=== PATIENT | female | born 1990 | race Caucasian/White ===

== ENCOUNTER 2017-01-16 19:17 | Emergency (ER) ==
[2017-01-16 19:23] VITALS: BP 119/74; TEMP 98.6; BMI 25.9
[2017-01-16] MEDS ORDERED: LIDOCAINE 1 % AMP 5 ML (SUTURES) ID STA (19:54)
[2017-01-16] MEDS ORDERED: BOOSTRIX IM ONE (19:55)
--- NOTE | 2017-01-16 19:58 | ED.PDOC ---
General ED Provider: Dr. THOM HOBBS Chief Complaint: Finger Pain/Injury Stated Complaint: fish hook stuck in the middle finger Time Seen by Physician: 19:56 Mode of Arrival: Walk-In Information Source: Patient Nursing and Triage Documentation Reviewed and Agree: Yes Skin Complaint Exam - Skin/Soft Tissue Complaint/Exam Symptoms Are: Still present Timing: Constant Initial Severity: Mild Current Severity: Mild Character: Reports: Redness, Swelling Aggravating: Reports: Touch Alleviating: Reports: None Associated Signs and Symptoms: Reports: Tenderness. Denies: Fever, Chills, Itching, Drainage, Bruising, Red streaks, Joint swelling Related History: Reports: Recent trauma, Foreign body (fish hook) Related Surgical History: Reports: None Recent Exposure to Others w/Similar Symptoms: No Skin Findings: Present: Erythema, Induration Differential Diagnoses: Foreign Body (fish hook) Review of Systems - Review Of Systems Constitutional: Reports: No symptoms Eyes: Reports: No symptoms Ears, Nose, Mouth, Throat: Reports: No symptoms Respiratory: Reports: No symptoms Cardiac: Reports: No symptoms GI: Reports: No symptoms : Reports: No symptoms Musculoskeletal: Reports: No symptoms Skin: Reports: No symptoms Neurological: Reports: No symptoms Endocrine: Reports: No symptoms Hematologic/Lymphatic: Reports: No symptoms All Other Systems: Reviewed and Negative Past Medical History - Past Medical History Previously Healthy: Yes Endocrine: Reports: None Cardiovascular: Reports: None Respiratory: Reports: None Hematological: Reports: None Gastrointestinal: Reports: None Genitourinary: Reports: None Neuro/Psych: Reports: None Musculoskeletal: Reports: None Cancer: Reports: None Last Menstrual Period: 1 week ago - Surgical History General Surgical History: Reports: None - Family History Family History: Reports: None - Social History Smoking Status: Current every day smoker, Light tobacco smoker Smoking Cessation Counseling Time: > 3 min - 10 min Hx Substance Use: No Alcohol Screening: Occasionally - Immunizations Tetanus Shot up to Date: (unsure) Physical Exam - Physical Exam Appearance: Well-appearing, No pain distress, Well-nourished Eyes: LAURYN, EOMI, Conjunctiva clear ENT: Ears normal, Nose normal, Oropharynx normal Respiratory: Airway patent, Breath sounds clear, Breath sounds equal, Respirations nonlabored Cardiovascular: RRR, Pulses normal, No rub, No murmur GI/: Soft, Nontender, No masses, Bowel sounds normal, No Organomegaly Musculoskeletal: Normal strength, ROM intact, No edema, No calf tenderness Skin: Warm, Dry, Normal color Neurological: Sensation intact, Motor intact, Reflexes intact, Cranial nerves intact, Alert, Oriented Psychiatric: Affect appropriate, Mood appropriate Critical Care Note - Critical Care Note Total Time (mins): 0 Course - Course Orders, Labs, Meds: Orders Category Date Time Status Diphth,Pertuss(Acell),Tet Vac [Boostrix] MEDS 01/16/17 19:55 Discontinued 0.5 ml IM .ONCE ONE Lidocaine HCl/Pf [Lidocaine 1 % Amp 5 ml (Sutures)] MEDS 01/16/17 19:54 Discontinued 0.02 ml ID ONCE STA Medications Discontinued Medications Generic Name Dose Route Start Last Admin Trade Name Freq PRN Reason Stop Dose Admin Diphtheria/Pertussis/Tetanus Vacc 0.5 ml 01/16/17 19:55 01/16/17 20:19 Boostrix IM 01/16/17 19:56 Not Given .ONCE ONE Lidocaine HCl 0.02 ml 01/16/17 19:54 01/16/17 20:20 Lidocaine 1 % Amp 5 Ml (Sutures) ID 01/16/17 19:55 0.02 ml ONCE STA Administration Vital Signs: Temp Pulse Resp BP Pulse Ox 01/16/17 19:18 98.6 F 86 20 119/74 98 Departure - Departure Time of Disposition: 20:26 Disposition: HOME SELF-CARE Discharge Problem: Injury of finger Fish hook injury of finger Qualifiers: Encounter type: initial encounter Laterality: right Qualifier Code: (S69.91XA) Unspecified injury of right wrist, hand and finger(s), initial encounter Instructions: Puncture Wound (ED) Condition: Stable Pt referred to PMD for follow-up: Yes Additional Instructions: keep hand elevated tylenol prn patient refused to take tdap Prescriptions: Cephalexin [Keflex] 500 mg PO Q12HR #20 capsule Allergies/Adverse Reactions: Allergies No Known Allergies Allergy (Unverified 01/16/17 19:24) Home Medications: Ambulatory Orders Cephalexin [Keflex] 500 mg PO Q12HR #20 capsule 01/16/17 Disposition Discussed With: Patient
[2017-01-16] MEDS ORDERED: KEFLEX PO STA (20:26)
== END 2017-01-16 20:33 | disposition home or self-care (01) ==
LOC: ED 19:17
DX: S61.248A Puncture wound with foreign body of other finger without damage to nail, initial encounter (principal); W45.8XXA Other foreign body or object entering through skin, initial encounter; F17.210 Nicotine dependence, cigarettes, uncomplicated
CPT/HCPCS: 99283